=== PATIENT | female | born 1960 | race Caucasian/White ===

== ENCOUNTER 2018-09-24 09:55 | Outpatient (CLI) | payer OTHER ==
--- NOTE | 2018-09-24 10:43 | XRay Report ---
AP AND LATERAL LUMBOSACRAL SPINE: History: Disability exam. There is normal bone mineralization. No fracture or malalignment. No suspicious bone lesion. Moderate multilevel degenerative disc disease and facet arthropathy is identified. L4-5 appears to be the most affected level. The sacrum and SI joints are unremarkable. IMPRESSION: Lumbar spondylosis.
== END 2018-09-24 09:56 | disposition home or self-care (01) ==
LOC: XRAY 09:55
PROVIDERS: ATTEND Internal Medicine
DX: Z02.71 Encounter for disability determination (principal); M51.36 Other intervertebral disc degeneration, lumbar region; M47.816 Spondylosis without myelopathy or radiculopathy, lumbar region
CPT/HCPCS: 72100